=== PATIENT | female | born 1955 | race Caucasian/White ===

== ENCOUNTER 2021-05-12 15:47 | Outpatient (NON) | payer MEDICARE, SELFPAY | END 2021-05-12 15:48 | disposition home or self-care (01) | LOC: HOME HLTH 15:50 | PROVIDERS: PCP Internal Medicine; Visit Provider Internal Medicine | DX: R39.9 Unspecified symptoms and signs involving the genitourinary system (principal) | CPT/HCPCS: 87086; 87088 ==

== ENCOUNTER 2023-01-09 16:55 | Emergency (ER) | payer OTHER, MEDICARE, SELFPAY ==
--- NOTE | ~2023-01-09 | XR_ITS ---
EXAMINATION: XR hand RT min 3V DATE: 01/09/2023 17:47 INDICATION: Right hand injury. TECHNIQUE: 3 views of right hand were obtained. COMPARISON: None. FINDINGS: Bone alignment is normal. No fracture. There is severe osteoarthritis of first carpometacar pal joint and second and third distal interphalangeal joints. There is moderate osteoarthritis of fou rth distal interphalangeal joint and mild osteoarthritis of some of the other interphalangeal joints. IMPRESSION: 1. Polyarticular osteoarthritis. Reviewed, dictated and finalized at location E.
[2023-01-09 17:12] VITALS: BP 190/80; PULSE 91; RESP 18; TEMP 36.8; O2SAT 95
--- NOTE | 2023-01-09 18:43 | ED.UPPEXIN ---
HPI - Extremity Injury (Upper) General Chief Complaint: Extremity Injury, Upper Stated Complaint: right hand injury today Time Seen by Provider: 01/09/23 18:32 Source: patient Mode of arrival: ambulatory Limitations: no limitations History of Present Illness HPI narrative: This is a 68 year old female that presents to the ER for right hand pain after an injury this morning. Reports she got her hand caught between a metal grate and a door frame. Reports bruising and pain to the area. Denies decreased ROM or numbness. Related Data Home Medications Medication Instructions Recorded Confirmed acetaminophen 325 mg capsule 650 mg PO QHS PRN 01/19/21 05/12/21 aspirin 81 mg tablet,delayed 81 mg PO DAILY 01/19/21 05/12/21 release calcium carbonate 600 mg calcium 600 mg PO DAILY 01/19/21 05/12/21 (1,500 mg) tablet (Calcium) ibuprofen 200 mg capsule 200 mg PO Q6H PRN 01/19/21 05/12/21 multivitamin 1 tablet PO DAILY 01/19/21 05/12/21 Allergies Allergy/AdvReac Type Severity Reaction Status Date / Time codeine Allergy Severe Nausea Verified 01/09/23 16:55 iodine Allergy Severe Nausea Verified 01/09/23 16:55 soap Allergy Severe Nausea Verified 01/09/23 16:55 Sulfa (Sulfonamide Allergy Severe Nausea Verified 01/09/23 16:55 Antibiotics) povidone Allergy Unknown Nausea Verified 01/09/23 16:55 CODEINE (Generic Allergy) Allergy Y Uncoded 01/09/23 16:55 POVIDONE IODINE (Generic Allergy Y Uncoded 01/09/23 16:55 Allergy) Review of Systems Review of Systems: CONSTITUTIONAL: Denies fever SKIN: Reports bruising MUSCULOSKELETAL: Reports joint pain, and myalgia. NEUROLOGIC: Denies numbness All systems reviewed & are unremarkable except as noted in HPI and below PMFSH Past Medical History Medical History (Updated 01/09/23 @ 18:57 by Thelma Melendez PA-C) Chronic hip pain Chronic low back pain Essential (primary) hypertension Surgical History Surgical History (Updated 01/19/21 @ 10:50 by Luis Eduardo Blair APRN) History of carpal tunnel surgery of left wrist Family History Family History Father Family history of chronic obstructive pulmonary disease Mother Family history of chronic obstructive pulmonary disease Other Hypertension Social History Social History (Updated 05/12/21 @ 14:01 by Danna Gordon MA) Smoking status: Never smoker Second hand tobacco smoke exposure: No Alcohol intake: never Substance use: never Substance use type: does not use Exam Narrative: GENERAL: Well-appearing, well-nourished, and in no acute distress. HEAD: Normocephalic, atraumatic. EYES: EOMI. EXTREMITIES: Normal range of motion. No edema or obvious deformity. Mild bruising to the right hand dorsal surface. Normal radial pulse. Normal sensation SKIN: Warm, dry, no rash. NEURO: No focal deficits. Alert and oriented x3. PSYCH: Normal mood and affect Course Course Emergency Course: Patient updated on work-up and agrees with plan of care Vital Signs Vital signs: Vital Signs Temperature 98.2 F 01/09/23 17:12 Pulse Rate 91 01/09/23 17:12 Respiratory Rate 18 01/09/23 17:12 Blood Pressure 190/80 H 01/09/23 17:12 Pulse Oximetry 95 01/09/23 17:12 Oxygen Delivery Room Air 01/09/23 17:12 Temperature 98.2 F 01/09/23 17:12 Pulse Rate 91 01/09/23 17:12 Respiratory Rate 18 01/09/23 17:12 Blood Pressure 190/80 H 01/09/23 17:12 Pulse Oximetry 95 01/09/23 17:12 Oxygen Delivery Room Air 01/09/23 17:12 MDM - Extremity Injury (Upper) MDM Narrative Medical decision making narrative: Patient presents to the emergency department for right hand injury sustained this morning. She is neurovascularly intact. Right hand x-rays without acute osseous abnormalities. Patient instructed to rest, ice and take [id number] pain medication as needed. She is to follow-up with primary care provider Patient in
[2023-01-09] MEDS: IBUPROFEN 600 MG TABLET PO (18:45)
[2023-01-09 19:01] VITALS: BP 173/90; PULSE 73; RESP 15; O2SAT 99
== END 2023-01-09 19:30 | disposition home or self-care (01) ==
LOC: ANHED 19:24
PROVIDERS: Emergency Provider Physician Assistant; PCP Nurse Practitioner
DX: S60.221A Contusion of right hand, initial encounter (principal); I10 Essential (primary) hypertension; M19.041 Primary osteoarthritis, right hand; M18.9 Osteoarthritis of first carpometacarpal joint, unspecified; Z79.82 Long term (current) use of aspirin; W23.0XXA Caught, crushed, jammed, or pinched between moving objects, initial encounter
CPT/HCPCS: 73130; 99283; A9270

== ENCOUNTER 2023-03-19 10:14 | Outpatient (CLI) | payer MEDICARE, SELFPAY ==
[2023-03-19 11:44] LABS: Hematocrit 37.6 % (37.0-47.0); Hemoglobin 12.1 g/dL (12.0-15.0); Mean Corpuscular HGB Conc 32.2 g/dl (32-36); Mean Corpuscular Hemoglobin 31.3 pg (26-34); Mean Corpuscular Volume 97.2 fl (80-100); Mean Platelet Volume 11.3 fl (7.4-10.4); Platelet Count Result 274 k/mm3 (150-375); Red Blood Count 3.87 M/mm3 (4.2-5.4); Red Cell Distribution Width 12.9 % (11.5-14.5); White Blood Count 6.8 K/mm3 (4.5-10.0)
[2023-03-19 11:49] LABS: Appearance Urine Clear (Clear); Bilirubin Urine Negative (Negative); Blood Urine Negative (Negative); Color Urine Yellow (Yellow); Glucose Urine UA Negative (Negative); Ketones Urine Negative (Negative); Leukocyte Esterase Ur Negative LEU/UL (Negative); Nitrate Urine Negative (Negative); Protein Urine Negative (Negative); Specific Grav Ur 1.015 (1.001-1.035); Urobilinogen Urine 0.2 mg/dL (<2.0); pH Urine 7.5 (5.0-9.0)
[2023-03-19 11:55] LABS: Potassium 4.1 mmol/L (3.4-5.0)
[2023-03-19 11:57] LABS: Alanine Aminotransferase 18 U/L (6-35); Albumin Level 4.3 g/dL (3.5-5.1); Alkaline Phosphatase 84 U/L (38-126); Anion Gap 5 mmol/L (8-16); Aspartate Amino Transferase 23 U/L (14-36); Bilirubin,Total 0.7 mg/dL (0.2-1.3); Blood Urea Nitrogen 12 mg/dL (7-17); Calcium 9.2 mg/dL (8.4-10.2); Carbon Dioxide 32 mmol/L (22-30); Chloride 101 mmol/L (98-107); Cholesterol 197 mg/dL (0-200); Estimated Glomerular Filt Rate > 60; Glucose 91 mg/dL (65-110); HDL Direct 84 mg/dL; Sodium 138 mmol/L (137-145); Triglycerides 71 mg/dL (<150)
[2023-03-19 12:06] LABS: LDL Cholesterol Direct 82 mg/dL
[2023-03-19 12:09] LABS: Hemoglobin A1C 5.3 % (<5.7)
[2023-03-19 12:16] LABS: Add Urine Microscopic? NO
== END 2023-03-19 10:15 | disposition home or self-care (01) ==
LOC: ANHLAB 10:16
PROVIDERS: PCP Nurse Practitioner; Visit Provider Nurse Practitioner
DX: R39.15 Urgency of urination (principal); R35.0 Frequency of micturition; I10 Essential (primary) hypertension; Z68.41 Body mass index [BMI] 40.0-44.9, adult; Z79.899 Other long term (current) drug therapy
CPT/HCPCS: 36415; 80053; 80061; 81003; 83036; 84443; 85027

== ENCOUNTER → 2023-04-01 06:57 | Outpatient (CLI) | payer MEDICARE, SELFPAY ==
--- NOTE | ~2023-04-01 | MR_ITS ---
EXAMINATION: MR lumbar spine wo con DATE: 04/01/2023 07:44 INDICATION: Chronic low back pain with right-sided radiculopathy with right hip and leg pain and burn ing. TECHNIQUE: Magnetic resonance imaging (MRI) of the lumbar spine was performed without intravenous con trast. Sequences included sagittal T2-weighted FSE, sagittal T2-weighted FS FSE, sagittal T1-weighted FSE, and axial T2-weighted FSE. COMPARISON: None FINDINGS: 10 degrees lumbar levoscoliosis. 2 mm anterolisthesis L5 on S1. Vertebral body heights are normal wit h Schmorl's nodes along the superior endplates of L4 and L5 and the endplates on both sides of the L1 -L2 disc space. Fibrovascular degenerative endplate changes anteriorly at both sides of the T11-T12 d isc space. Marrow signal is otherwise normal. Moderate disc height loss at L4-L5 and L5-S1. Mild to m oderate disc height loss at L3-L4 and with left-sided predominance at 11 T12 and T12-L1. Mild disc he ight loss at T10-T11, L1-L2 and L2-L3. Annular fissures and disc bulges resulting in mild central can al stenosis at T10-T11 and T11-T12. The more caudal levels will be detailed on a level by level basis below. The conus medullaris terminates at L1-L2. There is normal signal in the caudal spinal cord. P aravertebral soft tissues are unremarkable. The following disc levels are specifically discussed: T12-L1: Disc is bulging with annular fissure. There is mild to moderate left and moderate right facet joint osteoarthritis. There is mild left neural foraminal stenosis. There is mild central canal sten osis. L1-L2: Disc is bulging with annular fissure. There is mild left and moderate right facet joint osteoa rthritis. There is mild to moderate bilateral neural foraminal stenosis. There is moderate central ca nal stenosis. L2-L3: Disc is bulging. There is mild right and minimal left facet joint osteoarthritis. There is mil d to moderate bilateral neural foraminal stenosis. There is mild central canal stenosis. L3-L4: Disc is bulging with annular fissure. There is mild bilateral facet joint osteoarthritis. Ther e is mild to moderate bilateral neural foraminal stenosis. There is mild central canal stenosis. L4-L5: Disc is bulging with annular fissure. There is mild left and severe right facet joint osteoart hritis. There is moderate right and mild to moderate left neural foraminal stenosis. There is mild ce ntral canal stenosis. L5-S1: Disc is bulging with annular fissure. There is severe bilateral facet joint osteoarthritis. Th ere is mild bilateral neural foraminal stenosis. There is no central canal stenosis. IMPRESSION: 1. 10 degrees lumbar levoscoliosis with moderate lumbar and lower thoracic spondylosis. Reviewed, dictated and finalized at location A. IMPRESSION: 1. 10 degrees lumbar levoscoliosis with moderate lumbar and lower thoracic spon dylosis.
== END ==
PROVIDERS: PCP Nurse Practitioner; Visit Provider Nurse Practitioner
DX: M47.24 Other spondylosis with radiculopathy, thoracic region (principal)
CPT/HCPCS: 72148

== ENCOUNTER 2024-06-29 14:07 | Outpatient (CLI) | payer MEDICARE, SELFPAY ==
--- NOTE | ~2024-06-29 | XR_ITS ---
XR hip RT min 2V Ordering provider: Luis Eduardo Blair APRN History: . M25.551 - Pain in right hip . Comparison: None. FINDINGS: BONES: No acute fracture or dislocation. HIP JOINT SPACES: Right hip Severe osteoarthritic changes. Subarticular cystic changes are seen in th e femoral head and acetabular SACROILIAC JOINT SPACES/LUMBAR SPINE: The right sacroiliac joint spaces are normal. Mild degenerative changes of the visualized lower lumbar spine. SOFT TISSUES: Normal. IMPRESSION: No acute osseous abnormality pelvis and right hip. Severe right hip osteoarthritic changes. Reviewed, dictated and finalized at location A. LOGIST
[2024-06-29 14:55] LABS: Hematocrit 38.7 % (37.0-47.0); Hemoglobin 12.4 g/dL (12.0-15.0); Mean Corpuscular Hemoglobin 30.8 pg (26-34); Mean Corpuscular Volume 96.3 fl (80-100); Mean Platelet Volume 11.6 fl (7.4-10.4); Platelet Count Result 269 k/mm3 (150-375); Red Blood Count 4.02 M/mm3 (4.2-5.4); Red Cell Distribution Width 13.2 % (11.5-14.5); White Blood Count 7.4 K/mm3 (4.5-10.0)
[2024-06-29 15:04] LABS: Hemoglobin A1C 5.4 % (<5.7)
[2024-06-29 15:12] LABS: Alanine Aminotransferase 14 U/L (6-35); Albumin Level 4.2 g/dL (3.5-5.1); Alkaline Phosphatase 95 U/L (38-126); Anion Gap 3 mmol/L (4-12); Aspartate Amino Transferase 21 U/L (14-36); Bilirubin,Total 0.6 mg/dL (0.2-1.3); Blood Urea Nitrogen 8 mg/dL (7-17); Calcium 9.1 mg/dL (8.4-10.2); Carbon Dioxide 31 mmol/L (22-30); Chloride 105 mmol/L (98-107); Cholesterol 167 mg/dL (0-200); Estimated Glomerular Filt Rate > 60; Glucose 99 mg/dL (65-110); HDL Direct 67 mg/dL; Potassium 3.2 mmol/L (3.4-5.0); Sodium 139 mmol/L (137-145); Triglycerides 113 mg/dL (<150)
[2024-06-29 15:22] LABS: LDL Cholesterol Direct 58 mg/dL
[2024-06-29 15:36] LABS: Add Urine Microscopic? YES; Appearance Urine Cloudy (Clear); Bacteria Urine None Seen /hpf; Bilirubin Urine Negative (Negative); Blood Urine Negative (Negative); Color Urine Yellow (Yellow); Glucose Urine UA Negative (Negative); Ketones Urine Negative (Negative); Leukocyte Esterase Ur 2+ LEU/UL (Negative); Nitrate Urine Negative (Negative); Protein Urine Negative (Negative); RBC Urine 0-2 /hpf (0-2); Specific Grav Ur 1.019 (1.001-1.035); Squamous Epithelial Cell Urine Few /hpf (Few); Urobilinogen Urine 0.2 mg/dL (<2.0); WBC Urine 21-50 /hpf (0-3); pH Urine 6.5 (5.0-9.0)
== END 2024-06-29 14:08 | disposition home or self-care (01) ==
PROVIDERS: PCP Nurse Practitioner; Visit Provider Nurse Practitioner
DX: M16.11 Unilateral primary osteoarthritis, right hip (principal); R30.0 Dysuria; I10 Essential (primary) hypertension; G89.29 Other chronic pain; Z68.42 Body mass index [BMI] 45.0-49.9, adult; Z79.899 Other long term (current) drug therapy
CPT/HCPCS: 36415; 73502; 80053; 80061; 81001; 83036; 84443; 85027; 87086